=== PATIENT | male | born 1935 | race Caucasian/White ===

== ENCOUNTER → 2017-12-02 | Outpatient (CLI) | payer MEDICARE ==
[~2017-12-02] MED LIST: ACET325; ALBU90OI61; BUDE6HFA; DOCU100; FOLI400; HYDSUL200 PO; LEVFLO500; METHOTREXATE; SIMV40; STRIVERDI RESPIM4 GM INH; TIOT18
[2017-12-06 14:10] LABS: Stool Occult Bld Immuno 1 Negative (NEGATIVE); Stool Occult Bld Immuno 2 Negative (NEGATIVE); Stool Occult Bld Immuno 3 Negative (NEGATIVE)
== END ==
LOC: LAB EV 13:00 → EDSTATUS 10-16 16:20 → LAB FUT 10-16 16:20
PROVIDERS: Family Medicine
DX: D64.9 Anemia, unspecified (principal)
CPT/HCPCS: 82274